=== PATIENT | female | born 1970 | race African-American/Black ===

== ENCOUNTER → 2016-10-13 | Outpatient (CLI) | payer OTHER ==
--- NOTE | 2016-10-13 15:14 | KCIC ---
PROCEDURE MR of the left knee HISTORY Left knee pain. Injury October 04. TECHNIQUE Routine multiplanar sequences are obtained. COMPARISON None FINDINGS There is some increased signal and ill definition of the posterior root of the medial meniscus compatible with a mild degenerative tear. There is mild extrusion of the medial meniscus from the joint compartment, as well as mild meniscal distortion. Signal identified within the body segment which violates the medial capsular margin and communicates with a tiny parameniscal cyst. No evidence of a lateral meniscal tear. The anterior and posterior cruciate ligaments are intact. Mild medial collateral ligament scarring without acute tear. Iliotibial band unremarkable. Fibular collateral ligament, biceps femoris tendon and popliteus tendon are intact. The extensor mechanism is intact. Small joint effusion. No evidence of osteochondral loose body. Focal chondromalacia at the upper pole of the patella. No aggressive bone destruction or acute fracture. No significant Levy cyst. IMPRESSION 1. Degenerative tear of the posterior root of the medial meniscus with mild extrusion. Some additional mild tearing at the body segment. 2. Mild chondromalacia at the upper edge of the patella. Electronically signed by: Sunny Morrow MD (Oct 13, 2016 15:13:40)
== END | disposition home or self-care (01) ==
LOC: KCIC MRI 13:43
PROVIDERS: ATTEND Nurse Practitioner Family
DX: M22.41 Chondromalacia patellae, right knee (principal); S83.241A Other tear of medial meniscus, current injury, right knee, initial encounter; X58.XXXA Exposure to other specified factors, initial encounter; Y93.89 Activity, other specified; Y92.89 Other specified places as the place of occurrence of the external cause; Y99.8 Other external cause status
CPT/HCPCS: 73721